=== PATIENT | male | born 1950 | race Caucasian/White ===

== ENCOUNTER 2023-01-30 01:06 | Day surgery (SDC) | payer MEDICARE, SELFPAY ==
[2023-01-16 14:35] VITALS: BMI 54.4
--- NOTE | 2023-01-29 13:41 | PM.HPGS ---
History of Present Illness History of Present Illness Consent: Risks, benefits, and alternatives have been discussed and questions answered. Patient agrees to proceed with procedure. Chief complaint: hx colon polyps Narrative: Devin Menezes is a 72 year old male was referred for colon cancer screening. About 4 years ago he had colonoscopy with removal of 5 polyps, at least 1 of which was a tubular adenoma. Review of Systems Review of Systems: All systems reviewed & are unremarkable except as noted in HPI and below PMFSH Past Medical History Medical History Controlled diabetes mellitus Obesity Family History Family History Father Patient's father is in good health Family history of coronary artery disease Social History Social History Smoking status: Never smoker Second hand tobacco smoke exposure: No Alcohol intake: current Substance use: never Substance use type: does not use Living arrangements: with family Occupation/Education: retired Gender identity (if verbalized by the patient): Male Sexual Orientation (if Verbalized by the Patient): Straight or Heterosexual Spiritual care concerns: No Meds Home Medications and Allergies Home Medications Medication Instructions Recorded Confirmed Type finasteride 5 mg tablet 5 mg PO HS 12/07/19 01/30/23 History hydrochlorothiazide 50 mg tablet 50 mg PO DAILY #90 tabs 12/18/22 01/30/23 Rx Adult One Daily Multivitamin 1 tab-cap PO DAILY 01/16/23 01/30/23 History Glucosamine Chondroitin 1 cap PO DAILY 01/16/23 01/30/23 History doxazosin 8 mg tablet 8 mg PO HS 01/16/23 01/30/23 History nadolol 40 mg tablet 40 mg PO HS 01/16/23 01/30/23 History simvastatin 40 mg tablet 40 mg PO HS 01/16/23 01/30/23 History warfarin 4 mg tablet 8 mg PO DAILY 01/16/23 01/30/23 History Allergies Allergy/AdvReac Type Severity Reaction Status Date / Time latex Allergy Intermediate Other Verified 01/30/23 09:54 Exam Resp: Auscultation: clear to auscultation bilaterally Cardio: Rate: regular rate Rhythm: regular rhythm GI: GI Palp: Yes Soft to palpation and No Tenderness to palpation present (GI) Assessment and Plan Assessment and plan (1) Colon cancer screening: Code(s): Z12.11 - Encounter for screening for malignant neoplasm of colon Status: Acute Assessment and Plan: Colonoscopy with possible biopsy or polypectomy or cautery or injection of substances.
[2023-01-30 09:57] VITALS: BP 142/86; RESP 20; TEMP 35.9; O2SAT 97
[2023-01-30] MEDS: LACTATED RINGERS 1,000 ML 150 ML IV CONT (10:02)
[2023-01-30 10:57] LABS: INR 1.3; Prothrombin Time 15.8 Seconds (11.1-14.7)
--- NOTE | 2023-01-30 11:00 | P.PNAN_ITS ---
Anes - Initial Pre Proc Eval Procedure: Operation Date: 01/30/23 11:00 Proposed Procedures p Colonoscopy - Evin Woodall MD Date/Time: 01/30/23 11:00 Surgeon: Evin Woodall MD Pre Op Diagnosis: hx colon polyps Patient Data Age: 72 Gender: M Height: 1.79 m Weight: 171.4 kg Last Vital Signs Temp 96.7 F L 01/30/23 09:57 Resp 20 01/30/23 09:57 BP 142/86 H 01/30/23 09:57 Pulse Ox 97 01/30/23 09:57 O2 Del Method Room Air 01/30/23 09:57 Allergies Allergy/AdvReac Type Severity Reaction Status Date / Time latex Allergy Intermediate Other Verified 01/30/23 09:54 Home Medications Medication Instructions Recorded Confirmed Type finasteride 5 mg tablet 5 mg PO HS 12/07/19 01/30/23 History hydrochlorothiazide 50 mg tablet 50 mg PO DAILY #90 tabs 12/18/22 01/30/23 Rx Adult One Daily Multivitamin 1 tab-cap PO DAILY 01/16/23 01/30/23 History Glucosamine Chondroitin 1 cap PO DAILY 01/16/23 01/30/23 History doxazosin 8 mg tablet 8 mg PO HS 01/16/23 01/30/23 History nadolol 40 mg tablet 40 mg PO HS 01/16/23 01/30/23 History simvastatin 40 mg tablet 40 mg PO HS 01/16/23 01/30/23 History warfarin 4 mg tablet 8 mg PO DAILY 01/16/23 01/30/23 History Laboratory Tests 01/30/23 10:22 PT 15.8 Seconds H Seconds (11.1-14.7) INR 1.3 Patient hx anesthesia problems: none Family hx anesthesia problems: none Results Review: All pre-operative results and documents have been reviewed as part of the pre- operative evaluation. [facility] Past Medical History Medical History Controlled diabetes mellitus Obesity Family History Family History Father Patient's father is in good health Family history of coronary artery disease Social History Social History Smoking status: Never smoker Second hand tobacco smoke exposure: No Alcohol intake: current Substance use: never Substance use type: does not use Living arrangements: with family Occupation/Education: retired Gender identity (if verbalized by the patient): Male Sexual Orientation (if Verbalized by the Patient): Straight or Heterosexual Spiritual care concerns: No Anes - Eval Final PreProcedure Day of Procedure 01/30/23 11:00 Patient weight: super morbidly obese Heart: regular rate and rhythm Lungs: clear to auscultation Airway: Mallampati scale class III Neurological: alert and oriented Last oral intake: >/= 8 hours ASA classification: IV Emergent: no Anesthetic plan: proceed Anesthesia type and monitoring: general GIVS and standard monitoring Results Review: All pre-operative results and documents have been reviewed as part of the pre- operative evaluation. Informed Consent: The patient's anesthetic plan and its attendant risks and benefits were discussed with the patient/family/POA. Questions were solicited and answers provided to the satisfaction of the patient/family/POA.
[2023-01-30 11:35] VITALS: BP 119/66; PULSE 85; RESP 16; O2SAT 95
[2023-01-30 11:45] VITALS: BP 132/70; PULSE 77; RESP 30; O2SAT 97
[2023-01-30 12:00] VITALS: BP 126/74; PULSE 86; RESP 23; O2SAT 95
== END 2023-01-30 12:11 | disposition home or self-care (01) ==
PROVIDERS: PCP Family Medicine; Visit Provider Internal Medicine Gastroenterology
PROC: 0DJD8ZZ Inspection of Lower Intestinal Tract, Via Natural or Artificial Opening Endoscopic (ICD-10-PCS; CPT 45378; principal; 2023-01-30 11:00)
DX: Z12.11 Encounter for screening for malignant neoplasm of colon (principal); K64.8 Other hemorrhoids; K57.30 Diverticulosis of large intestine without perforation or abscess without bleeding; Z86.010 Personal history of colon polyps; E11.9 Type 2 diabetes mellitus without complications; Z79.01 Long term (current) use of anticoagulants; E66.9 Obesity, unspecified; Z68.43 Body mass index [BMI] 50.0-59.9, adult
CPT/HCPCS: G0105; 36415; 85610; J2704; J7120

== ENCOUNTER 2023-04-21 18:07 | Emergency (ER) | payer MEDICARE, SELFPAY ==
--- NOTE | ~2023-04-21 | XR_ITS ---
EXAMINATION: XR chest 2V DATE: 04/21/2023 19:14 INDICATION: Shortness of breath and anasarca TECHNIQUE: frontal and lateral views of the chest were obtained. COMPARISON: None FINDINGS: Opacities at the bilateral lower lung zones appear primarily anterior on the lateral projection. Calc ified nodule posteriorly at one of the lung bases. No pleural effusion or pneumothorax. The cardiomed iastinal silhouette remains within normal limits for AP technique. Moderate thoracic spondylosis. IMPRESSION: 1. Opacities at the anterior bilateral lower lung zones most likely combination of prominent paracard ial fat pads and associated atelectasis in the lingula and right middle lobe although differential in cludes pneumonia. Reviewed, dictated and finalized at location A. IMPRESSION: 1. Opacities at the anterior bilateral lower lung zones most likely combination of prominent paracardial fat pads and associated atelectasis in the lingula an d right middle lobe although differential includes pneumonia.
--- NOTE | ~2023-04-21 | US_ITS ---
EXAMINATION: US scrotum doppler DATE: 04/21/2023 19:14 INDICATION: Testicular pain and swelling TECHNIQUE: Testicular sonogram utilizing grayscale and Doppler COMPARISON: None. FINDINGS: The right testis measures 4.1 x 3.2 x 2.2 cm. The left testis measures 4.4 x 3.0 x 3.5 cm. There is h eterogeneous decreased echogenicity of the left testis and prominent asymmetric increased vascular fl ow to the left testis relative to the right. 2 mm anechoic cysts centrally in the left testis The rig ht epididymis is normal with normal vascular flow. There is asymmetric enlargement with heterogeneous decreased echogenicity and prominent increased vascular flow on the left epididymis relative to the right. There is a small complex left hydrocele with numerous internal septations. There is no varicoc roel or right hydrocele. There is prominent bilateral scrotal edema. IMPRESSION: 1. Enlarged edematous-appearing left testis and epididymis, both with prominent asymmetric increased vascular flow relative to the right consistent with epididymoorchitis. 2. Small complex left hydrocele. Reviewed, dictated and finalized at location A. IMPRESSION: 1. Enlarged edematous-appearing left testis and epididymis, both with prominen t asymmetric increased vascular flow relative to the right consistent with epid idymoorchitis. 2. Small complex left hydrocele.
[2023-04-21 18:10] VITALS: BP 117/99; PULSE 74; RESP 16; TEMP 36.7; O2SAT 94
--- NOTE | 2023-04-21 18:22 | ECG_ITS ---
Measurements Intervals Falls Rate: 87 P: DE: 0 QRS: -81 QRSD: 157 T: 23 QT: 373 QTc: 451 Interpretive Statements ATRIAL FIBRILLATION RIGHT BUNDLE BRANCH BLOCK LEFT ANTERIOR FASCICULAR BLOCK ABNORMAL ECG NO PREVIOUS ECG AVAILABLE FOR COMPARISON Electronically Signed On 04-21-2023 21:20:21 CDT by Simon Fields D.O.
--- NOTE | 2023-04-21 18:23 | ED.MALEGU ---
HPI - Male Genitourinary General Chief complaint: Urogenital-Male Stated complaint: testicle pain Time Seen by Provider: 04/21/23 18:14 History of Present Illness HPI Narrative: Patient is a 72-year-old male here for evaluation of testicular/scrotal swelling and pain over the past 3 days. Patient states that the area has become progressively worse since onset, and he has had difficulty pushing out urine due to the swelling. No derian retention. He denies history of previous similar sensation. He denies any dysuria, hematuria abdominal pain, nausea, vomiting, back pain. Patient denies any shortness of breath at rest, although when he ambulated back into the room he states that ambulation made him short of breath. Denies concerns for STIs or STDs, he has 1 female sexual partner. Related Data Home Medications Medication Instructions Recorded Confirmed finasteride 5 mg tablet 5 mg PO HS 12/07/19 03/13/23 Adult One Daily Multivitamin 1 tab-cap PO DAILY 01/16/23 03/13/23 Glucosamine Chondroitin 1 cap PO DAILY 01/16/23 03/13/23 doxazosin 8 mg tablet 8 mg PO HS 01/16/23 03/13/23 nadolol 40 mg tablet 40 mg PO HS 01/16/23 03/13/23 simvastatin 40 mg tablet 40 mg PO HS 01/16/23 03/13/23 warfarin 4 mg tablet 8 mg PO DAILY 01/16/23 03/13/23 Allergies Allergy/AdvReac Type Severity Reaction Status Date / Time latex Allergy Intermediate Other Verified 04/21/23 18:20 Review of Systems Review of Systems: Gen.: Denies fevers or chills Eyes: Denies eye pain or visual change ENT: Denies congestion Respiratory: Denies shortness of breath or cough CV: Denies chest pain or palpitations GI: Denies abdominal pain nausea, emesis or diarrhea reports scrotal pain and swelling Musculoskeletal: Denies back pain or muscle pain Neuro: Denies numbness, tingling, weakness or focal weakness Skin: Denies rash Except as documented, all other systems reviewed and negative [facility] Past Medical History Medical History Controlled diabetes mellitus Obesity Family History Family History Father Patient's father is in good health Family history of coronary artery disease Social History Social History Smoking status: Never smoker Second hand tobacco smoke exposure: No Alcohol intake: current Substance use: never Substance use type: does not use Living arrangements: with family Occupation/Education: retired Gender identity (if verbalized by the patient): Male Sexual Orientation (if Verbalized by the Patient): Straight or Heterosexual Spiritual care concerns: No Exam Narrative: APPEARANCE: Morbidly obese Head: Normocephalic and atraumatic. EYES: PERRLA/EOMI, conjunctivae clear NOSE: No nasal drainage EARS: External ear normal in appearance THROAT: Oropharynx is clear. Mucous membranes are moist. NECK: Supple. No adenopathy, no masses. RESPIRATORY: Airway patent, respirations nonlabored. Clear to auscultation bilaterally, no rales, rhonchi, wheezing. CARDIOVASCULAR: Regular rate and rhythm without murmurs, rubs, or gallops. ABDOMINAL: Abdomen is distended. : Testicles are swollen and erythematous, the right testicle is tender to palpation MUSCULOSKELETAL: 2+ pitting edema to the bilateral lower extremities from the ankle to the knee. Extremities are warm and well-perfused. Moves all extremities well. No edema. NEURO: Normal speech. No focal neurologic deficits. SKIN:There are chronic vascular changes to the skin to the lower extremities. PSYCHIATRIC: Normal affect/mood. Course Vital Signs Vital signs: Vital Signs Temperature 98.0 F 04/21/23 18:10 Pulse Rate 74 04/21/23 18:10 Respiratory Rate 16 04/21/23 18:10 Blood Pressure 117/99 H 04/21/23 18:10 Pulse Oximetry 94 04/21/23 18:10 Oxygen Delivery Room Air 04/21/23 18:1
[2023-04-21 18:44] LABS: Basophils Percent Auto 0.2 % (0.2-1.2); Eosinophils Percent Auto 0.1 % (0-4.4); Hematocrit 44.7 % (42.0-52.0); Hemoglobin 14.8 g/dL (14.0-18.0); Immature Granulocyte Absolute 0.08 K/mm3 (0.00-0.031); Immature Granulocyte Percent A 0.6 % (0-0.5); Lymphocytes Absolute Auto 0.59 K/mm3 (0.9-3.2); Lymphocytes Percent Auto 4.5 % (18.3-44.2); Mean Corpuscular HGB Conc 33.1 g/dl (32-36); Mean Corpuscular Volume 96.8 fl (80-100); Mean Platelet Volume 10.5 fl (7.4-10.4); Monocytes Percent Auto 7.8 % (2.6-8.5); Neutrophils Absolute Auto 11.3 K/mm3 (1.3-6.7); Neutrophils Percent Auto 86.8 % (45.5-73.1); Platelet Count Result 153 k/mm3 (150-375); Red Blood Count 4.62 M/mm3 (4.6-6.20); Red Cell Distribution Width 13.7 % (11.5-14.5)
[2023-04-21 18:56] LABS: INR 2.2; Prothrombin Time 26.6 Seconds (11.1-14.7)
[2023-04-21 18:57] LABS: Appearance Urine Cloudy (Clear); Bacteria Urine 2+ /hpf; Bilirubin Urine 1+ (Negative); Blood Urine 3+ (Negative); Color Urine Dark Yellow (Yellow); Glucose Urine UA Negative (Negative); Hyaline Casts Urine Present /lpf; Ketones Urine Trace mg/dL (Negative); Leukocyte Esterase Ur 2+ LEU/UL (Negative); Nitrate Urine Positive (Negative); Partial Thromboplastin Time 45.2 SECONDS (22.3-36.8); Protein Urine 2+ mg/dL (Negative); RBC Urine >100 /hpf (0-2); Specific Grav Ur 1.027 (1.001-1.035); Squamous Epithelial Cell Urine Few /hpf (Few); WBC Urine >100 /hpf; pH Urine 5.5 (5.0-9.0)
[2023-04-21 18:58] LABS: Add Urine Microscopic? YES
[2023-04-21 19:00] LABS: Magnesium 1.9 mg/dL (1.6-2.3)
[2023-04-21 19:01] LABS: Alanine Aminotransferase 23 U/L (6-50); Albumin Level 3.8 g/dL (3.5-5.1); Alkaline Phosphatase 85 U/L (38-126); Anion Gap 5 mmol/L (8-16); Aspartate Amino Transferase 26 U/L (17-59); Bilirubin,Total 1.3 mg/dL (0.2-1.3); Blood Urea Nitrogen 27 mg/dL (9-20); Calcium 8.5 mg/dL (8.4-10.2); Carbon Dioxide 31 mmol/L (22-30); Chloride 98 mmol/L (98-107); Estimated CRCL calculation 118 ml/min; Estimated Glomerular Filt Rate > 60; Glucose 118 mg/dL (65-110); Potassium 3.5 mmol/L (3.4-5.0); Sodium 134 mmol/L (137-145)
[2023-04-21 19:10] LABS: NT Pro B Type Natriuretic Pept 2200 pg/mL (19.9-100)
[2023-04-21 19:24] VITALS: PULSE 88; O2SAT 94
[2023-04-21 19:30] VITALS: BP 167/81; PULSE 81; RESP 20; O2SAT 93
[2023-04-21 20:27] VITALS: BP 154/77; PULSE 90; RESP 19; O2SAT 96
== END 2023-04-21 21:07 | disposition home or self-care (01) ==
PROVIDERS: Emergency Provider Physician Assistant; PCP Family Medicine
DX: N45.3 Epididymo-orchitis (principal); E11.9 Type 2 diabetes mellitus without complications; E66.9 Obesity, unspecified; Z68.43 Body mass index [BMI] 50.0-59.9, adult; Z79.01 Long term (current) use of anticoagulants; R06.02 Shortness of breath; N50.811 Right testicular pain; I48.91 Unspecified atrial fibrillation; I45.2 Bifascicular block
CPT/HCPCS: 36415; 71046; 76870; 80053; 81001; 83735; 83880; 85025; 85610; 85730; 87077; 87086; 87186; 87491; 87591; 93005; 93976; 96365; 99284; J0696

== ENCOUNTER 2024-04-20 11:53 | Outpatient (CLI) | payer MEDICARE, SELFPAY ==
--- NOTE | ~2024-04-20 | XR_ITS ---
EXAM: XR foot LT min 3V DATE: 04/20/2024 12:17 HISTORY: Pain in left foot X 7+ YRS AFTER TWISTING IT . COMPARISON: None available. FINDINGS: Normal mineralization. No fracture or dislocation. No lytic or blastic lesion. Scattered o steoarthritic changes, moderate at the tibiotalar joint and mild at the first MTP joint and multiple midfoot joints. Moderate plantar enthesopathy. No erosion or periosteal change. Soft tissues within n ormal limits. IMPRESSION: No acute osseous finding in the left foot. Reviewed, dictated and finalized at location K.
== END 2024-04-20 11:54 | disposition home or self-care (01) ==
LOC: ANHIMG 11:59
PROVIDERS: PCP Family Medicine; Visit Provider Family Medicine
DX: M79.672 Pain in left foot (principal)
CPT/HCPCS: 73630